=== PATIENT | male | born 1990 | race Caucasian/White ===

== ENCOUNTER 2016-10-30 15:19 | Inpatient (IN) | payer OTHER ==
--- NOTE | ~2016-10-30 | DS ---
Unit #: [id number] #: [id number] Patient: LULA CARDENAS [id number] [facility] [address] [place] [address] [id number] MR#: [id number] NAME: LULA CARDENAS ROOM: [facility] Age: 25 Sex: M Admission Date: 10/30/2016 : 1990 Discharge Date: 10/31/2016 Attending Physician: Barry العراقي M.D. DISCHARGE SUMMARY REASON FOR ADMISSION Alcohol use and depression. DIAGNOSTIC STUDIES LABORATORY RESULTS: Unremarkable. HOSPITAL COURSE The patient was admitted to inpatient unit on . The patient was treated on the inpatient unit with expressive therapy, psychoeducation, psychotherapy, and chemical dependency group. The patient was compliant and cooperative. The patient reported no suicidal ideation. Reported history of alcohol abuse and cannabis abuse. The patient reported having suicidal thoughts each time he is drinking. The patient denied any withdrawal symptoms. Subsequently, the patient was discharged on no medication. DISCHARGE MEDICATIONS None. DISCHARGE DIAGNOSES Psychiatric: 1. Alcohol use disorder, severe, F10.20. 2. Cannabis abuse disorder, moderate, F12.20. 3. Mood disorder, not otherwise specified, F32.9. Secondary diagnosis: Deferred. Medical diagnosis: None. Stressors: Psychosocial stressors. DISCHARGE INSTRUCTIONS The patient is to follow up in outpatient clinic as per social services assistant. CONDITION ON DISCHARGE The patient was pleasant and cooperative. Denied any psychotic symptom or any suicidal ideation. PROGNOSIS Guarded. DIET AND ACTIVITY As tolerated. Unit #: [id number] #: [id number] Patient: LULA CARDENAS Dictated by... Vasu Goldberg/carla TD: 10/31/2016 20:11 JOB #: [id number] DISCHARGE SUMMARY X Barry العراقي MD X DISCHARGE SUMMARY
--- NOTE | ~2016-10-30 | HP ---
Unit #: [id number] #: [id number] Patient: RUBEN CARDENAS [id number] [place] [address] [id number] MR#: [id number] NAME: RUBEN CARDENAS ROOM: [facility] Age: 25 Sex: M Admission Date: 10/30/2016 : 1990 Attending Physician: Barry العراقي M.D. Admitting Physician: Barry العراقي M.D. HISTORY AND PHYSICAL NOTE Ruben is a 25 year old who was admitted and discharged within the first 24 hours. He was not seen for an H&P. Dictated by... Rosalee Martinez P.A.-C. for Vasu Valero/tremayne TD: 11/01/2016 02:44 JOB #: [id number] HISTORY AND PHYSICAL X Rosalee Martinez X HISTORY AND PHYSICAL
--- NOTE | ~2016-10-30 | PA ---
Unit #: [id number] #: [id number] Patient: RUBEN ROY [id number] [facility] [address] [place] [address] [id number] MR#: [id number] NAME: RUBEN ROY ROOM: [facility] Age: 25 Sex: M Admission Date: 10/30/2016 : 1990 Date of Assessment: 10/30/2016 Attending Physician: Barry العراقي M.D. Admitting Physician: Barry العراقي M.D. PSYCHIATRIC ASSESSMENT INFORMANTS The patient reliability, fair informant and chart reliability, good. CHIEF COMPLAINT Depression. HISTORY OF PRESENT ILLNESS Mr. Ruben Roy is a 25-year-old male, seen on 10/30/2016. The patient reported last night "I got too drunk and usually when I drink, my suicidal thoughts come out." The patient reported having suicidal thoughts. Denied any suicidal ideation. Denied any homicidal ideation. The patient lives with girlfriend, presented due to increase in depressive symptom, suicidal ideation, thoughts of shooting himself, and jumping from a height. The patient reported punching himself. The patient denied any homicidal ideation. Denied any psychotic symptom. Needing inpatient admission at this time for psychiatric stabilization. The patient reported alcohol use, age of onset 19; marijuana, age of onset 19; crack cocaine, age of onset 20; and LSD, age of onset 20. The patient reported history of blackout. No history of any IV drug use. No history of any HIV, hepatitis, or withdrawal symptoms. Needing inpatient admission at this time for psychiatric stabilization. PAST PSYCHIATRIC HISTORY Unremarkable for any history of any previous treatment. FAMILY HISTORY AND SOCIAL HISTORY The patient's family history is unremarkable. No known history of any abuse. MEDICAL HISTORY Unremarkable for any chronic medical illness. Musculoskeletal; muscle strength and tone, no atrophy or abnormal movement. Gait normal. MEDICATION HISTORY None. ALLERGIES No known drug allergies. SUBSTANCE ABUSE HISTORY Please see above. REVIEW OF SYSTEMS Unit #: [id number] #: [id number] Patient: RUBEN ROY HEENT: Eyes, clear. Ears, nose, mouth, and throat; clear. CARDIOVASCULAR: Unremarkable. RESPIRATORY: Unremarkable. GI: Unremarkable. : Unremarkable. SKIN: Unremarkable. LYMPH NODE: Unremarkable. NEUROLOGIC: Unremarkable. ENDOCRINE: Unremarkable. HEMATOLOGIC: Unremarkable. ALLERGIC/IMMUNOLOGIC: Unremarkable. MUSCULOSKELETAL: Muscle strength and tone, no atrophy or abnormal movement. Gait normal. MENTAL STATUS EXAMINATION CONSTITUTIONAL: Measurement of vital signs; temperature 97.9, heart rate 73, respiratory rate 16, blood pressure 122/74, height 5 feet 10 inches, and weight 155 pounds. GENERAL APPEARANCE: The patient dressed casually. The patient did not show any facial deformity. MUSCULOSKELETAL: Please see above. PSYCHIATRIC EXAMINATION Description of speech, regular rate and normal volume. Description of thought process, goal directed. Description of association, intact. Description of abnormal psychotic thinking; the patient denied any hallucinations or delusions, but mood lability and substance abuse. Description of the patient's judgment, concerning everyday activity, poor. Social situation, poor. Concerning psychiatric condition, poor. Complete mental status examination; oriented in time, place, and person. Attention span and concentration, fair. Language, able to name object and repeat phrases. Fund of knowledge, aware of current event and passive vocabulary intact. Mood and affect, sad, and depressed. Insight and judgment, fair to poor. ASSETS AND LIABILITIES Assets, the patient is articulate and able to take care of his ADL. Liability, substance abuse and depression. ADMITTING DIAGNOSES Psychiatric: Major depressive disorder, recurrent, F33.2, alcohol use disorder, severe, F10.20; and cannabis abuse, moderate, F12.20. Secondary diagnosis: Deferred. Medical diagnosis: None. Stressors: Psychosocial stressors. PSYCHIATRIC PLAN AND TREATMENT GOAL AND DISCHARGE PLAN 1. Advised to admit the patient on the inpatient unit. Provide safe, supportive, and structured environment. 2. Ordered labs; CBC, CMP, UA, and UDS. 3. Precaution for self-harm and monitor for withdrawal symptoms. 4. The patient to attend all the programing, group therapy, and individual therapy. If needed, consider medication. Unit #: [id number] #: [id number] Patient: RUBEN ROY TREATMENT GOAL To attain euthymic mood, gain insight into his problem, and learn coping skills. DISCHARGE PLAN Plan to stabilize the patient and consider followup in outpatient program. ESTIMATED LENGTH OF STAY 3 to 5 days. Dictated by... Barry العراقي M.D. JOE/carla TD: 10/30/2016 19:07 JOB #: [id number] PSYCHIATRIC ASSESSMENT X Barry العراقي MD PSYCHIATRIC ASSESSMENT
[2016-10-31 09:28] LABS: BASOPHIL% 0.7 % (0-2.5); EOSINOPHIL# 0.1 X10e3 (0-0.7); EOSINOPHIL% 2.5 % (0.0-7.0); HEMATOCRIT 45.6 % (38.0-50.0); HEMOGLOBIN 15.4 gm/dL (13.0-16.0); LYMPHOCYTE# 2.2 X10e3 (1.0-3.5); LYMPHOCYTE% 36.8 % (17.0-45.0); MEAN CELL VOLUME 89.7 FL (83-96); MEAN CORPUSCULAR HEMOGLOBIN 30.3 PG (28-34); MEAN CORPUSCULAR HGB CONC 33.8 g/dL (30-36); MEAN PLATELET VOLUME 8.4 FL (6.5-11.5); MONOCYTE# 0.6 X10e3 (0-1.0); MONOCYTE% 9.5 % (3.0-12.0); NEUTROPHIL% 50.5 % (40-75); PLATELET COUNT 199 X10e3 (140-420); RED BLOOD COUNT 5.08 X10e (3.90-5.60); RED CELL DISTRIBUTION WIDTH 12.6 % (11.0-15.5); WHITE BLOOD COUNT 5.9 X10e3 (4.0-10.5)
[2016-10-31 09:34] LABS: DIFF IND NO
[2016-10-31 09:56] LABS: ALBUMIN SERUM 4.7 g/dL (3.5-5.0); ALKALINE PHOSPHATASE 58 U/L (32-92); ALT (SGPT) 19 U/L (10-40); AST (SGOT) 22 U/L (10-42); BILIRUBIN,TOTAL 1.4 mg/dL (0.2-2.0); BLOOD UREA NITROGEN 10 mg/dL (9-23); CALCIUM SERUM 9.9 mg/dL (8.4-10.2); CARBON DIOXIDE 30 mmol/L (22-31); CHLORIDE 103 mmol/L (100-111); CREATININE SERUM 0.8 mg/dL (0.6-1.4); GLOM FILT RATE Estimated ABOVE60 mL/min (>60); GLUCOSE FASTING 78 mg/dL (70-110); POTASSIUM 4.7 mmol/L (3.5-5.1); SODIUM 141 mmol/L (135-145)
[2016-11-01 09:49] LABS: URINE APPEARANCE CLEAR; URINE BILIRUBIN NEG (NEG); URINE BLOOD NEG (NEG); URINE COLOR YELLOW; URINE GLUCOSE NEG (NEG); URINE KETONE 1+ (NEG); URINE LEUKOCYTE ESTERASE NEG (NEG); URINE NITRATE NEG (NEG); URINE PROTEIN NEG (NEG); URINE SPECIFIC GRAVITY 1.025 (1.003-1.035)
[2016-11-01 10:42] LABS: AMPHETAMINE NEG (NEG); BARBITURATES NEG (NEG); BENZODIAZEPINES NEG (NEG); COCAINE NEG (NEG); MARIJUANA POS (NEG); OPIATES NEG (NEG); TRICYCLIC ANTIDEPRESSANTS NEG (NEG); U METHADONE NEG (NEG)
== END 2016-10-31 11:29 | disposition home or self-care (01) | DRG 885 ==
LOC: P1E 15:19
PROVIDERS: Psychiatry & Neurology Psychiatry
DX: F33.2 Major depressive disorder, recurrent severe without psychotic features (principal); F10.20 Alcohol dependence, uncomplicated; F12.20 Cannabis dependence, uncomplicated
CPT/HCPCS: 80053; 80307; 81003; 85025